=== PATIENT | female | born 1990 | race Caucasian/White ===

== ENCOUNTER 2019-01-19 21:25 | Emergency (ER) | payer BC ==
[2019-01-19] MEDS: FLUORESCEIN STRIP RIGHT EYE (22:30)
[2019-01-19] MEDS: TETRACAINE 0.5% 4 ML OPH RIGHT EYE (22:44)
[2019-01-19] MEDS: SODIUM CHLORIDE 0.9% 1L IRRIG IRR (23:03)
[2019-01-19] MEDS: morphine 4 MG/ML VIAL IM (23:17)
[2019-01-19] MEDS: DIPHTH/TET/ACEL PERTUSS (ADULT) 0.5 ML VIAL IM* (23:18)
[2019-01-19] MEDS: ONDANSETRON (ODT) 4 MG TAB ODT (23:55)
[2019-01-20] MEDS: FAMOTIDINE 20 MG TAB PO (00:11)
[2019-01-20] MEDS: LIDOCAINE/MYLANTA 40 ML BTL PO (01:17)
[2019-01-20 01:26] LABS: ADD UMIC YES; UR ASCORBIC ACID NEGATIVE (NEGATIVE); UR BACTERIA FEW /HPF (NONE SEEN); UR BILIRUBIN (Dip) NEGATIVE (NEGATIVE); UR BLOOD (Dip) NEGATIVE (NEGATIVE); UR CLARITY SLIGHTLY CLOUDY (CLEAR); UR COLOR YELLOW (YELLOW); UR GLUCOSE (Dip) NEGATIVE (NEGATIVE); UR KETONES (Dip) NEGATIVE (NEGATIVE); UR LEUKOCYTE ESTERASE (Dip) TRACE Leu/ul (NEGATIVE); UR MUCUS MANY /HPF (NONE SEEN); UR NITRITE (Dip) NEGATIVE (NEGATIVE); UR RBC 2 /HPF (0-5); UR SPECIFIC GRAVITY (Dip) 1.027 (1.003-1.030); UR SQUAMOUS EPITHELIAL CELL FEW /HPF (FEW); UR TOTAL PROTEIN (Dip) NEGATIVE (NEGATIVE); UR UROBILINOGEN (Dip) NEGATIVE (NEGATIVE); UR WBC 1 /HPF (0-5)
[2019-01-20 01:34] LABS: AMPHETAMINE/METHAMPHETAMINE Negative (NEGATIVE); BARBITURATES Negative (NEGATIVE); BENZODIAZEPINES Negative (NEGATIVE); CANNABINOIDS Positive (NEGATIVE)
[2019-01-20 01:36] LABS: COCAINE Positive (NEGATIVE); OPIATES Positive (NEGATIVE)
== END 2019-01-20 02:43 | disposition home or self-care (01) ==
LOC: FTE 01-20 02:43
DX: T54.91XA Toxic effect of unspecified corrosive substance, accidental (unintentional), initial encounter (principal); R10.13 Epigastric pain; Z23 Encounter for immunization
CPT/HCPCS: 80307; 81001; 81025; 90471; 90715; 96372; 99284-25